=== PATIENT | female | born 1960 | race Caucasian/White ===

== ENCOUNTER 2025-04-02 07:45 | Outpatient (CLI) | payer MEDICARE, SELFPAY ==
--- NOTE | 2025-04-02 09:06 | P.ANES_ITS ---
Anesthesia Charges Start Date/Time Anesthesia Start Date: 04/02/25 Anesthesia Start Time: 08:21 Stop Date/Time Anesthesia Stop Date: 04/02/25 Anesthesia Stop Time: 08:54 Coding CPT Codes CPT Codes: ASHLEIGH LWR INTST NDSC NOS - [id number] ([id number]) P2 - PATIENT W/MILD SYST DISEASE, QK - CENTERLESS GRINDER 2-4 CNCRNT ANES PROC, QX - INTERLOCKING MACHINE OPERATOR SVC W/ MD MED DIRECTION
--- NOTE | 2025-04-02 09:06 | W.ANESCHARGE ---
Anesthesia Charges Start Date/Time Anesthesia Start Date: 04/02/25 Anesthesia Start Time: 08:21 Stop Date/Time Anesthesia Stop Date: 04/02/25 Anesthesia Stop Time: 08:54 Coding CPT Codes CPT Codes: ASHLEIGH LWR INTST NDSC NOS - [id number] ([id number]) P2 - PATIENT W/MILD SYST DISEASE, QK - SENIOR EDITOR 2-4 CNCRNT ANES PROC, QX - TRACTOR DRILL OPERATOR SVC W/ MD MED DIRECTION
--- NOTE | 2025-04-02 09:51 | P.ANES_ITS ---
Anesthesia Charges Start Date/Time Anesthesia Start Date: 04/02/25 Anesthesia Start Time: 08:21 Stop Date/Time Anesthesia Stop Date: 04/02/25 Anesthesia Stop Time: 08:54 Coding CPT Codes CPT Codes: ASHLEIGH LWR INTST NDSC NOS - [id number] ([id number]) QK - CHEMICAL MIXER 2-4 CNCRNT ASHLEIGH PROC, QX - SPRAY APPLICATOR SVC W/ MD MED DIRECTION, P2 - PATIENT W/MILD SYST DISEASE
--- NOTE | 2025-04-02 09:51 | W.ANESCHARGE ---
Anesthesia Charges Start Date/Time Anesthesia Start Date: 04/02/25 Anesthesia Start Time: 08:21 Stop Date/Time Anesthesia Stop Date: 04/02/25 Anesthesia Stop Time: 08:54 Coding CPT Codes CPT Codes: ASHLEIGH LWR INTST NDSC NOS - [id number] ([id number]) QK - PASTING INSPECTOR 2-4 CNCRNT ASHLEIGH PROC, QX - SUPERVISOR PAINTING DEPARTMENT SVC W/ MD MED DIRECTION, P2 - PATIENT W/MILD SYST DISEASE
== END 2025-04-02 07:46 | disposition home or self-care (01) ==
LOC: OP CLINIC 07:50
PROVIDERS: Visit Provider Surgery
DX: Z12.11 Encounter for screening for malignant neoplasm of colon (principal); D12.2 Benign neoplasm of ascending colon; K57.30 Diverticulosis of large intestine without perforation or abscess without bleeding; Z86.0100 Personal history of colon polyps, unspecified
CPT/HCPCS: 00811; 00812; 45385; J2371; J2704